=== PATIENT | male | born 1995 | race African-American/Black ===

== ENCOUNTER 2018-10-05 16:04 | Emergency (ER) | payer OTHER ==
[~2018-10-05] VITALS: Ht 177.8 cm; Wt 79.4 kg
[2018-10-05] MEDS ORDERED: ZOFRAN4 MG PO (17:21)
[2018-10-05 17:59] VITALS: BP 105/61
== END 2018-10-05 18:00 | disposition home or self-care (01) ==
LOC: ER 16:04
DX: F12.90 Cannabis use, unspecified, uncomplicated (principal)

== ENCOUNTER 2019-03-16 03:12 | Emergency (ER) | payer OTHER ==
[~2019-03-16] VITALS: Ht 177.8 cm; Wt 79.4 kg
[~2019-03-16 03:12] MED LIST: ZOFRAN4 MG PO
[2019-03-16 03:25] LABS: URINE BILIRUBIN NEGATIVE (Negative); URINE BLOOD NEGATIVE (Negative); URINE CLARITY CLEAR; URINE COLOR YELLOW; URINE GLUCOSE-RANDOM* NEGATIVE (Negative); URINE KETONES NEGATIVE (Negative); URINE LEUKOCYTES-REFLEX NEGATIVE (Negative); URINE NITRITE-REFLEX NEGATIVE (Negative); URINE PROTEIN (DIPSTICK) NEGATIVE (Negative); URINE UROBILINOGEN 0.2 E.U./dl (0.2-1.0)
[2019-03-16 03:47] LABS: ABSOLUTE NEUTROPHILS 8.4 thou/uL (1.4-8.2); BASOPHILS 0.6 % (0.0-2.0); HEMATOCRIT 47.1 % (42.0-52.0); HEMOGLOBIN 15.9 gm/dL (14.0-18.0); MCH 27.6 pg (26.0-34.0); MCHC 33.8 g/dL (28.0-37.0); MCV 81.8 fL (80.0-100.0); MONOCYTES 8.4 % (1.0-8.0); PLATELET COUNT 270 thou/uL (150-400); RBC 5.76 mil/uL (4.50-6.00); RDW 12.3 % (10.5-14.5); WBC 11.3 thou/uL (4.0-11.0)
[2019-03-16] MEDS ORDERED: PEPCID40 MG PO (03:49)
[2019-03-16] MEDS ORDERED: BENTYL 20 MG TA20 M1 PO (03:49)
[2019-03-16 03:57] LABS: CALCIUM 9.9 mg/dL (8.5-10.1); CREATININE 1.1 mg/dL (0.7-1.3); POTASSIUM 4.1 mmol/L (3.5-5.1)
[2019-03-16 04:00] LABS: ALBUMIN 4.2 g/dL (3.4-5.0); TOTAL BILIRUBIN 0.5 mg/dL (<0.1-1.0); TOTAL PROTEIN 8.1 g/dL (6.4-8.2)
[2019-03-16 04:55] VITALS: BP 127/63
== END 2019-03-16 05:01 | disposition home or self-care (01) ==
LOC: ER 03:12
PROVIDERS: Emergency Medicine
DX: R19.7 Diarrhea, unspecified (principal); R10.13 Epigastric pain; R10.32 Left lower quadrant pain